=== PATIENT | male | born 1965 | race Caucasian/White ===

== ENCOUNTER 2016-11-09 01:15 | Inpatient (IN) | payer OTHER ==
[~2016-11-09] VITALS: Ht 180.3 cm; Wt 88.5 kg
--- NOTE | 2016-11-09 16:43 | Admission Core Measures ---
Admission Meds I reviewed the following Meds: Current Medications Sig/Javon Start time Last Medication Dose Stop Time Status Admin Cefazolin Sodium 2,000 MG ONCE 11/09 0000 NR (Kefzol-Ancef Inj) 11/09 2359 Acute Coronary Syndrome Inclusion Criteria ACS Diagnosis No Inpatient Core Measures LDL Reminder: If No, please order W/I first 24hr of stay Congestive Heart Failure Inclusion Criteria CHF Diagnosis No Cerebrovascular accident Inclusion Criteria CVA/TIA Diagnosis No Inpatient Core Measures Bedside Swallow Eval Reminder: If BSE failed, place ST order Antithrombotic Reminder: Order Antithrombotic Medication by end of day 2 Antithrombotic Reminder: Document Reason Antithrombotic Not ordered by end of day 2 AFIB/Flutter Reminder: If Present, add to problem list AFIB/Flutter Reminder: Order Anticoag Medication for pts with AFIB/Flutter Atherosclerosis Reminder: If Present, add to problem list LDL Reminder: If No, please order W/I first 24hr of stay PT Order Reminder: If No, please order Venous thromboembolism Inpatient Core Measures VTE Risk Factors: Age > 40, Surgery VTE Prophylaxis Ordered Inpt Mech & Pharm No Mech VTE prophylaxis d/t No contraindications No VTE Pharm Prophylaxis d/t No contraindications Inclusion Criteria - Per Current guidelines, there needs to be overlap - treatment for the first 5 days of Warfarin therapy. - Parenteral Anticoagulation (IV or SC) needs to be - given along with Warfarin therapy. VTE Diagnosis No VTE Type NONE VTE Confirmed by (Test) NONE Problem List As ranked by this Provider includes Assessment & Plan 1. S/P repair of ventral hernia
[2016-11-09] MEDS ORDERED: ATORVASTATIN CA40 M1 PO (16:56)
--- NOTE | 2016-11-09 17:41 | Operative Report ---
Operative/Inv Procedure Report Surgery Date: 11/09/16 Name of Procedure: bilateral component separation (myocutaneous advancement flap) Recurrent incisional hernia repair with biologic mesh Pre-Operative Diagnosis: Recurrent incisional hernia Post-Operative Diagnosis: same Estimated Blood Loss: 50ml to 100ml Surgeon/Softwood Faller: HUNTER LEAL,NORY Mcgowan/ROSS Griffin Anesthesia: general endotracheal tube Implants: Strattice mesh Drains: 15fr KEERTHI x 2 Operative Indication: patient presents for repair of recurrent incisional hernia. it was Repaired primarily at the time of colovesical fistula repair. He had prior laparotomy splenectomy for trauma many years ago. He presents with very large recurrent incisional hernia causing partial loss of domain. Operative/Procedure Note Note: After consent, brought to OR and laid supine. General anesthesia obtained and abdomen prepped and draped. A midline incision made sharply to excise the midline scar. Dissection down to the fascia was carried out with cautery. There are multiple hernia defects and these were circumferentially dissected. Eventually opened one just to allow better visualization of what needed resected. There were multiple fascial defects throughout the midline incision extending up to the xiphoid. All hernia sac and attenuated fibrous tissue was excised with cutting cautery. The resultant defect was quite large. The largest fascial defect prior to dissection was more than 8 cm in greatest dimension. There is no way this could be brought together primarily without undue tension. Therefore we proceeded perform bilateral component separation/ myocutaneous advancement flap. Subcutaneous flaps were created bilaterally. Multiple perforators were taken with cautery. Once he identified the semilunar line, there were perforators there which were attempted to be spared to preserve cutaneous vascularization. We started on the right side and in size the external oblique fascia from the costal margin down to the inguinal region. The external oblique was then elevated laterally to allow medial mobilization of the muscle flap. Then turned attention to the left side which was accomplished in a similar fashion. The semilunar line was identified and incised once every lateral to it to expose the internal oblique. Again the muscle was elevated to allow medial mobilization. This point was fascia primarily with a running 0 Maxon suture. This came together easily without excessive tension. Placed an onlay mesh using Stratus mesh. It was shaped in a timely fashion and anchored along the costal margins bilaterally with interrupted 0 Maxon sutures. At the extreme lateral portion the mesh was anchored in underlay fashion to the external oblique prevent excessive retraction. It was anchored in the midline and on the rectus fascia bilaterally with interrupted sutures using 0 Maxon. Inferiorly was also adhered to the external oblique and rectus fascia. Once the attachments of the mesh, bilateral Kemal-Cedeno round 15 Albanian drains were placed in the space. There is sutured to the skin. Skin and soft tissue was then closed primarily in 2 layers of absorbable sutures and skin danielle. A prevena VAC was placed. Sponge and needle counts are correct. Patient tolerated procedure well CC: ERNST LEAL,ALIE
[2016-11-09 19:30] VITALS: BP 122/70
--- NOTE | 2016-11-09 22:11 | PN- General Surgery ---
Subjective Subjective: poc s/p ventral hernia repair resting comfortably denies cp, sob, no n+v Objective Vital Signs and I&Os Vital Signs Date Time Temp Pulse Resp B/P Pulse O2 O2 Flow FiO2 Ox Delivery Rate 11/10 1999 95 Nasal 2.0L Cannula 11/09 1930 97.3 98 16 122/70 95 Nasal 2.0L Cannula Physical Exam: cv: rrr lungs: clear abd: soft, mild lower abd distention expected tenderness to palp serosanguinous drainage in both joel drains provena vac without drainage ext: warm, distal cms intact amezcua: clear urine Assessment/Plan Assessment/Plan surgical stable plan keep amezcua til am titrate pain meds hep sq/alps for dvt prophylaxis oob in am, possibly home Core Measures/Miscellaneous Venous Thromboembolism VTE Risk Factors: Age > 40, Surgery VTE Contraindications: No Contraindications VTE Prophylaxis Ordered Inpt Mech & Pharm VTE Diagnosis: No VTE Type: NONE VTE Confirmed by (Test): NONE Beta Tushar Is Beta Tushar a Home Med? No Antibiotics Is Patient on Antibiotics? Yes
[2016-11-09 23:27] VITALS: BP 123/72
--- NOTE | 2016-11-10 00:46 | NUR ---
LATE ENTRY 11/09/16: PT ARRIVED TO FLOOR AT [facility]. 1940. A&O X 3. LUNGS CTA, DSG TO ABD CD&I. KEERTHI X2 AND PREVENA [address]. C/O PAIN, MEDS PROVIDED PER EMAR. BED LOW, LOCKED, CALL TIRADO IN REACH. HORNE DRAINING CLEAR YELLOW. MONITOR S/S OF INFECTION, PAIN MANAGEMENT.
[2016-11-10 02:30] VITALS: BP 108/64
[2016-11-10 05:08] VITALS: BP 100/74
[2016-11-10 05:45] VITALS: BP 106/74
--- NOTE | 2016-11-10 07:13 | PN- Student ---
JASWINDER RODRIGES 11/10/16 0656: Subjective Subjective: Patient reports no acute events overnight but reports he had troubles sleeping but not due to pain. He reports his pain is well controlled at a 5/10. The pain at its worst was a 7/10. Patient states his biggest fear is pain, that he will be sent home in agony. Patient denies any chest pain, shortness of breath, nausea, vomiting, bowel movements, flatus, fever/chills, and or pain in his legs. Objective Objective: Vitals: BP: 106/74 Pulse:71 Resp:19 Temp: 98.1F SpO2: 98% Physical Exam: General: Well appearing in no acute distress. Alert and oriented to person place and time. Skin: Hondo warm and dry. Head: Normocephalic, atraumatic. Eyes: PEERL, EOMI Cardiac: Regular rate and rhythm. Normal S1 and S2, no murmurs, rubs or gallops. Pulmonary: Clear to auscultation bilaterally. No rhonchi, wheezes, or rales. Abdoomen: Non-distended, non-tender to light palpation, no ecchymosis. Wound vac in place with no obvious leaks or drainage. KEERTHI drains bliaterally have minimal serosanguinous fluid. Bowel sounds normoactive. Extremities: Bilateral doraslis pedis pulses 2+ with full range of motion. No swelling, edema, or calf tenderness. Results Results: Microbiology 11/09 1230 URINE OR: Urine Culture - RES Assessment/Plan Assessment: Pt is a 51 year old male with history of ventral/incisional hernia and hypercholesteremia. Pt is POD#1 s/p ventral hernia repair with biomesh and no complications. Plan: -Continue pain medications as prescribed. -Continue heparin and ALPs for DVT prophylaxis. -Discontinue Gresham this am. -Encourage out of bed ambulation. -Continue clears and consider advancing to softs. -Follow up with pending am labs. Will discuss the above with PA surgical team. Jaswinder HAWKINS-S2 HUNTER LEAL,NORY Mcgowan 11/10/16 1312: Attending MD Review Statement Attending Sign Off Attending Cosign Statement: I have: examined this patient, reviewed al EMR data. HIPOLITO FUENTES 11/10/16 1641: Addendum Addendum I did not evaluate this patient, please refer to note signed by robert HAWKINS
--- NOTE | 2016-11-10 07:28 | PN- General Surgery ---
See Addendum Subjective Subjective: Pt. has no complaints. Reports he is feeling well.Taking liquid diet without nausea or emesis.States he is comfortable on Percocoet. Objective Vital Signs and I&Os Vital Signs Date Time Temp Pulse Resp B/P Pulse O2 O2 Flow FiO2 Ox Delivery Rate 11/10 0545 98.1 71 19 106/74 98 Nasal 2.0L Cannula 11/10 0508 98.2 81 18 100/74 96 Nasal 2.0L Cannula 11/10 0230 98.6 80 18 108/64 95 Room Air 11/10 0000 Nasal 2.0L Cannula 11/09 2327 97.9 73 18 123/72 95 Nasal 2.0L Cannula 11/09 2000 95 Nasal 2.0L Cannula 11/09 1930 97.3 98 16 122/70 95 Nasal 2.0L Cannula Intake & Output 11/10 0800 11/10 0000 11/09 1600 11/09 0800 11/09 0000 11/08 1600 Intake Total 345 Output Total 570 435 Balance -570 -90 Intake, IV 225 Intake, Oral 120 Output, 20 85 Drainage Output, Urine 550 350 Patient 195 lb Weight Alert, looks comfortable, ambulatory to bathroom. Lungs are clear bilat. Herat regular Abdomen is soft, mildly distended, appropriately tender. Provina dressing midline is intact. JPX2 with serosanginous output in small amounts. Gresham with yellow urine , adeqaute amounts Extr. without edema Assessment/Plan Assessment/Plan 51 y o male with s/p open ventral hernia repair with biomesh POD#1 Pt. progressing well as expected. Abdominal exam as expected, will advance diet to solids Wound/ dressing intact, KEERTHI output as expected. Will discuss with attending regarding removal of drains. Pain is well controlled with Percocet Adequate urinary output; will d/c Gresham and allow for spontaneous voiding. Increase ambulation. Will discuss d/c plans , likely later today or tomorrow. Core Measures/Miscellaneous Venous Thromboembolism VTE Risk Factors: Age > 40, Surgery VTE Contraindications: No Contraindications VTE Prophylaxis Ordered Inpt Mech & Pharm VTE Diagnosis: No VTE Type: NONE VTE Confirmed by (Test): NONE Beta Tushar Is Beta Tushar a Home Med? No Antibiotics Is Patient on Antibiotics? Yes
[2016-11-10 08:07] LABS: ABSOLUTE BASOPHIL COUNT 0 /CUMM (0.0-0.2); ABSOLUTE EOSINOPHIL COUNT 0 /CUMM (0.0-0.7); ABSOLUTE GRANULOCYTE CT 16.7 /CUMM (1.4-6.5); ABSOLUTE LYMPH COUNT 0.8 /CUMM (1.2-3.4); ABSOLUTE MONOCYTE COUNT 1.8 /CUMM (0.10-0.60); BASOPHIL % 0 % (0.0-2.0); EOSINOPHIL % 0.1 % (0-5); GRANULOCYTE % 86.3 % (42.2-75.2); MEAN CORPUSCULAR HGB 31.6 PG (27.0-31.0); MEAN CORPUSCULAR HGB CONC 33.6 G/DL (33.0-37.0); MEAN CORPUSCULAR VOLUME 94.1 FL (80.0-94.0); MEAN PLATELET VOLUME 8.7 FL (7.4-10.4); PLATELET COUNT 346 /CUMM (130-400); RBC DISTRIBUTION WIDTH 14.2 % (11.5-14.5); RED BLOOD CELL CT 4.01 /CUMM (4.70-6.10)
[2016-11-10 08:41] LABS: HEMATOCRIT 37.7 % (42-52)
[2016-11-10 10:02] LABS: WHITE BLOOD CELL COUNT 19.3 /CUMM (4.8-10.8)
[2016-11-10 10:03] VITALS: BP 114/74
[2016-11-10 14:22] VITALS: BP 100/62
[2016-11-10 22:45] VITALS: BP 120/70
--- NOTE | 2016-11-10 23:41 | NUR ---
AT 2230 PATIENT COMPLAINING OF 10/10 PAIN WITH MOVEMENT DESPITE IV MORPHINE GIVEN 30 MINUTES AGO. PATIENT STATES HE HAS "SPASMS IN LOWER ABDOMEN" WITH EVERY MOVEMENT. SURGICAL PA CALLED. PA RECOMMENDED AN ABDOMINAL BINDER FOR THE PATIENT. PATIENT REFUSED ABDOMINAL BINDER. PATIENT HANDED OFF TO RN STEFANY DUE TO MY SHIFT BEING OVER. RN STEFANY WILL FOLLOW-UP WITH PAIN.
[2016-11-11 07:51] VITALS: BP 118/70
--- NOTE | 2016-11-11 08:33 | PN- General Surgery ---
See Addendum Subjective Subjective: Patient had increased pain last night which interfered with sleeping. Otherwise no new c/o or acute events overnight. Pain controlled at this moment. Tolerating diet without n/v. +flatus. OOB and ambulating. Denies CP/SOB. Objective Vital Signs and I&Os Vital Signs Date Time Temp Pulse Resp B/P Pulse O2 O2 Flow FiO2 Ox Delivery Rate 11/11 0751 98.7 81 20 118/70 92 Room Air 11/10 2245 97.9 90 20 120/70 96 11/10 1422 98.9 98 20 100/62 93 Room Air 11/10 1003 98.1 89 20 114/74 95 Nasal 2.0L Cannula Intake & Output 11/11 1600 11/11 0800 11/11 0000 11/10 1600 11/10 0800 11/10 0000 Intake Total 480 350 850 840 345 Output Total 710 1115 570 435 Balance -230 350 -265 270 -90 Intake, IV 500 600 225 Intake, Oral 480 350 350 240 120 Number 0 Bowel Movements Output, 185 165 20 85 Drainage Output, Urine 525 950 550 350 Patient 195 lb Weight Physical Exam: General: NAD, comfortable, A&Ox3 Chest: NRD, breathing comfortably on RA. Heart S1S2 normal. Abdomen: soft, nondistended. Incision intact without surrounding erythem, swelling, signs of infection. KEERTHI x2 with sanguinous drainage. +Bowel sounds x4 quadrants Ext: No calve swelling/TTP, neurovascularly intact bilateral lower extremities Current Medications: Current Medications Sig/Javon Start time Last Medication Dose Route Stop Time Status Admin Acetaminophen 650 MG Q6P PRN 11/09 2014 AC PO Atorvastatin Calcium 40 MG DAILY 11/10 1000 AC 11/10 PO 0955 Dextrose/Sodium 1,000 ML .[id number] 11/09 2014 DC 11/10 Chloride IV 0955 Heparin Sodium 5,000 UNIT Q8 11/09 2200 AC 11/11 (Porcine) SC 0541 Influenza Virus 0.5 ML 1000 11/10 1000 DC 11/10 Vaccine IM 11/10 1001 1219 Morphine Sulfate 2 MG Q3P PRN 11/09 2014 AC 11/11 IV 0325 Morphine Sulfate 4 MG Q3P PRN 11/09 2014 AC 11/10 IV 1915 Ondansetron HCl 4 MG Q6P PRN 11/09 2014 IV Oxycodone/ 1 TAB Q4P PRN 11/09 2014 AC 11/11 Acetaminophen PO 0824 Oxycodone/ 2 TAB Q4P PRN 11/09 2014 AC 11/11 Acetaminophen PO 0542 Zolpidem Tartrate 5 MG AT BEDTIME NEED.. 11/09 2014 AC 11/10 PO 2343 Results Last 48 Hours of Labs: Laboratory Tests 11/10 0640 Chemistry Sodium (137 - 145 mmol/L) 134 L Potassium (3.5 - 5.1 mmol/L) 5.0 Chloride (98 - 107 mmol/L) 99 Carbon Dioxide (22 - 30 mmol/L) 25 Anion Gap (5 - 16) 11 BUN (9 - 20 mg/dL) 13 Creatinine (0.7 - 1.2 mg/dL) 0.8 Estimated GFR (>60 ml/min) > 60 BUN/Creatinine Ratio (7 - 25 %) 16.3 Hematology CBC w Diff NO MAN DIFF REQ WBC (4.8 - 10.8 /CUMM) 19.3 H RBC (4.70 - 6.10 /CUMM) 4.01 L Hgb (14.0 - 18.0 G/DL) 12.6 L Hct (42 - 52 %) 37.7 L MCV (80.0 - 94.0 FL) 94.1 H MCH (27.0 - 31.0 PG) 31.6 H RDW (11.5 - 14.5 %) 14.2 Plt Count (130 - 400 /CUMM) 346 MPV (7.4 - 10.4 FL) 8.7 Gran % (42.2 - 75.2 %) 86.3 H Lymphocytes % (20.5 - 51.1 %) 4.4 L Monocytes % (1.7 - 9.3 %) 9.2 Eosinophils % (0 - 5 %) 0.1 Basophils % (0.0 - 2.0 %) 0 L Absolute Granulocytes (1.4 - 6.5 /CUMM) 16.7 H Absolute Lymphocytes (1.2 - 3.4 /CUMM) 0.8 L Absolute Monocytes (0.10 - 0.60 /CUMM) 1.8 H Absolute Eosinophils (0.0 - 0.7 /CUMM) 0 Absolute Basophils (0.0 - 0.2 /CUMM) 0 PUBS MCHC (33.0 - 37.0 G/DL) 33.6 Assessment/Plan Assessment/Plan 51yo M POD#2 s/p ventral hernia repair with KEERTHI x2. AVSS, patient progressing well at this time. - Pain control - PRN zofran - I/O's - SC heparin and ALPS for DVT PPx - dressing changed bedside - continue regular diet - DC home today - will d/w attending and whether or not to dc KEERTHI drains Core Measures/Miscellaneous Venous Thromboembolism VTE Risk Factors: Age > 40, Surgery VTE Contraindications: No Contraindications VTE Diagnosis: No VTE Type: NONE VTE Confirmed by (Test): NONE Beta Tushar Is Beta Tushar a Home Med? No Antibiotics Is Patient on Antibiotics? No
[2016-11-11] MEDS ORDERED: PERCOCET 5-3251 EACH PO (08:58)
[2016-11-11] MEDS ORDERED: COLACE100 M1 PO (08:59)
--- NOTE | 2016-11-11 09:02 | Patient Discharge Instructions ---
Discharge Instructions General Discharge Information You were seen/treated for: Ventral Hernia You had these procedures: 11/09/16 Open Ventral Hernia Repair with KEERTHI drain x2 and Prevena vac appliance Watch for these problems: Redenss, swelling, fever, purulent drainage, signs of infection. Uncontrolled pain, excessive bleeding. Inability to tolerate diet. Malfunction of drains or Prevena Vac device. Chest pain. Shortness of breath. Other wound care: Continue dressing changes daily and KEERTHI drains in place until f/u appointment. Diet Continue normal diet: Yes Activity Full Activity/No Limits: No Pounds, do NOT lift more than: 10 Other activity limits: No strenuous activity or exercise. Acute Coronary Syndrome Inclusion Criteria At DC or during hospital stay patient has or had the following: ACS DIAGNOSIS No Discharge Core Measures Meds if any: Prescribed or Continued at Discharge Meds if any: NOT Prescribed or Continued at Discharge Congestive Heart Failure Inclusion Criteria At DC or during hospital stay patient has or had the following: CHF DIAGNOSIS No Discharge Core Measures Meds if any: Prescribed or Continued at Discharge Meds if any: NOT Prescribed or Continued at Discharge Cerebrovascular accident Inclusion Criteria At DC or during hospital stay patient has or had the following: CVA/TIA Diagnosis No Discharge Core Measures Meds if any: Prescribed or Continued at Discharge Meds if any: NOT Prescribed or Continued at Discharge Venous thromboembolism Inclusion Criteria VTE Diagnosis No VTE Type NONE VTE Confirmed by (Test) NONE Discharge Core Measures - Per Current guidelines, there needs to be overlap - treatment for the first 5 days of Warfarin therapy. - If discharged on Warfarin prior to 5 days of - overlap therapy, the patient will need to be - assessed for post discharge needs including - *Post discharge parental anticoagulation - *Warfarin and/or parental anticoagulation education - *Follow up date to check INR post discharge At least 5 days overlap therapy as Inpatient No Meds if any: Prescribed or Continued at Discharge Note: Overlap Therapy is Warfarin and Anticoagulant Meds if any: NOT Prescribed or Continued at Discharge
--- NOTE | 2016-11-11 09:30 | Surg Short-stay <48hrs Dis Sum ---
Visit Information Visit Dates Admission Date: 11/09/16 Discharge Date: 11/11/16 Surgical Short Stay DC Summary Admission Diagnosis: recurrent incisional hernia Final Diagnosis: same Procedure(s): bilateral component release with incisional hernia repair with mesh Summary/Significant Findings: none. admitted for pain control and drain management. Condition at Discharge: good Discharge Disposition: home or self care Discharge instructions provided to patient/family: Yes Post discharge follow-up plan: one week for drain removal.
[2016-11-11 14:50] VITALS: BP 116/74
== END 2016-11-11 16:18 | disposition home health service (06) | DRG 355 ==
LOC: ENRESERVTM → ENRESERVDT → STS 01:15 → 2NB 16:38 → ENPENDDIS 16:38 → PACUH 16:38 → EDBEDREQ 16:46 → 2NB 19:37
PROVIDERS: Physician Assistant Surgical; ADMIT Surgery
PROC: 0WUF0JZ Supplement Abdominal Wall with Synthetic Substitute, Open Approach (ICD-10-PCS; principal; 2016-11-09)
PROC: 0KUL07Z Supplement Left Abdomen Muscle with Autologous Tissue Substitute, Open Approach (ICD-10-PCS; principal; 2016-11-09)
PROC: 0KUK07Z Supplement Right Abdomen Muscle with Autologous Tissue Substitute, Open Approach (ICD-10-PCS; principal; 2016-11-09)
DX: K43.0 Incisional hernia with obstruction, without gangrene (principal); Z87.891 Personal history of nicotine dependence; E78.00 Pure hypercholesterolemia, unspecified
CPT/HCPCS: 2NSBP; 82436; 87086; 88302; 88304; J0131; J0690; J1100; J1644; J2405; J7042; Q2036